=== PATIENT | male | born 1950 | race Caucasian/White ===

== ENCOUNTER 2024-01-12 05:05 | Observation (INO) ==
--- NOTE | 2023-12-31 09:12 | PAT Medication Instructions ---
Medication Instructions Date of Service December 31, 2023 Home Medications zolpidem 5 mg tablet 5 mg PO HS PRN turmeric 400 mg capsule 400 mg PO QAM STOP taking 2 weeks before surgery (or as soon as possible if surgery is within 2 weeks) turmeric 400 mg capsule 400 mg PO QAM Take evening before surgery zolpidem 5 mg tablet 5 mg PO HS PRN(if needed) Other Notes NOTHING TO EAT OR DRINK AFTER MIDNIGHT. If you have any questions please call us at [phone] or [phone] or [phone] or [phone]
--- NOTE | 2024-01-01 10:02 | Anesthesiology Consultation ---
Date of Service January 01, 2024 Assessment & Plan (1) Encounter for pre-operative examination: - Infectious disease screening: Per assessment on 01/01/24: No known recent infectious disease contacts or current infectious disease symptoms. - Outpatient joint assessment: Pt currently scheduled for inpatient pathway. If surgeon requests review for outpatient joint pathway, patient is an acceptable candidate for outpatient joint program from anesthesia standpoint pending surgeon's office assessment that patient is motivated, has good support and completes Same Day Joint Program preop requirements. Chart Review Chart Review: Acceptable Risk for Surgery and Patient seen in Pre Admission Testing Teaching & Discussion Pre-Anesthesia Teaching/Discussion Notes: Instructed NPO after midnight before surgery,except medications with 15 cc of water. Medication instructions provided according to the PAT guidelines. History Surgery Operation Date: 01/12/24 08:50 Proposed Procedures p Right Total Hip Arthroplasty - Jan Batista MD Height/Weight Height: 5 ft 9 in Weight: 85.2 kg Allergies Allergy/AdvReac Type Severity Reaction Status Date / Time NSAIDS (Non-Steroidal Allergy Mild Rash Verified 12/30/23 15:39 Anti-Inflamma Medications Home Medications Medication Instructions Recorded Confirmed Last Taken zolpidem 5 mg tablet 5 mg PO HS PRN Sleep 05/10/20 12/30/23 04/15/22 turmeric 400 mg capsule 400 mg PO QAM 05/01/23 12/30/23 05/10/23 Past Medical History Medical History History of DVT (deep vein thrombosis) 2016; RLE post op History of Lyme disease "Multiple episodes"- most recent 3+ years ago History of renal stone Insomnia Osteoarthritis Exercise / Class Metabolic Activity II 4-5 Yardwork/Stairs/Walk up hill (one FS: No CP, no SOB) Past Family History Family History Sister Family history of reaction to anesthesia Sister: Heart stopped during hysterectomy and was "revived" 60+ years ago Other Deep vein thrombosis Past Surgical History Surgical History H/O lymph node excision History of arthroscopy of right knee History of carpal tunnel surgery of right wrist History of colonoscopy History of decompression of ulnar nerve Left + left CTR History of right knee joint replacement History of tonsillectomy History of tooth extraction Hx of left cataract extraction Hx of removal of cyst 1970s (upper jaw region) Hx of right cataract extraction Past Anesthesia History No Hx of Anesthesia Complications * Sister: Heart stopped during hysterectomy and was "revived" 60+ years ago History of PONV No Hx of PONV and No Hx of Motion Sickness Social History Smoking Status: Former smoker tobacco type: smokeless tobacco Do You Dip or Chew Tobacco: No (Quit 1 year ago- advised none DOS) Smoking End Date: Quit years ago Hx Alcohol Use: Yes Alcohol type: beer alcohol intake frequency: holidays/special occasions only Hx Substance Use: No substance use type: does not use Review of Systems Patient denies chest pain, shortness of breath, dyspnea on exertion, fever, chills, cough, wheezing, palpitations. Physical Exam Vital Signs BP 129/75 P 58 TEMP 97.8 SP02 95%RA RESP 16 Physical Full cervical extension range of motion. Full TMJ range of motion. TMD > 3.5 finger breaths Mallampati Score II Dentition: upper full denture Lungs: clear throughout to auscultation Cardiac: regular rate and rhythm, no murmurs noted Spine: normal Carotid arteries: negative bruit Extremities: no LE edema Short neck Lab Results Anesthesia Preop Results Results Anesthesia Widget: WBC 6.04 K/ul (4.8-10.8) 01/01/24 Hgb 15.2 g/dl (14.0-18.0) 01/01/24 Hct 44.8 % (42.0-52.0) 01/01/24 Plt 214 K/uL (130-400) 01/01/24 Na 140 mmol/L (136-145) 01/01/24 K 3.9 mmol/L (3.5-5.1) 01/01/24 Cl 109 mmol/L (98-107) H 01/01/24 CO2 26 mmol/L (21-32) 01/01/24 BUN 16 mg/dl (6-23) 01/01/24 Creat 1.03 mg/dl (0.6-1.4) 01/01/24 Glucose Level 91 mg/dl (70-99(Fasting)) 01/01/24 PT 10.3 Seconds (9.0-12.0) 01/01/24 PTT 26 Seconds (21-31) 01/01/24 INR 0.9 (0.9-1.1) 01/01/24 Blood Type O Positive 01/01/24 Antibody Screen NEGATIVE 01/01/24 Testing Electrocardiogram Date: 01/01/24 SB at 57bpm. "Otherwise normal ECG"
[2024-01-12] MEDS: LR 500ML BOLUS, THEN 15ML/HR IV SCH (05:51)
[2024-01-12] MEDS: FAMOTIDINE 20 MG TAB PO SCH (05:52)
[2024-01-12] MEDS: ACETAMINOPHEN 500 MG TAB PO SCH ×2 (05:52→10:43)
[2024-01-12] MEDS: METOCLOPRAMIDE HCL 10 MG TABLET PO SCH (05:52)
[2024-01-12] MEDS: LR 60ML/HR IV SCH (05:52)
[2024-01-12] MEDS ORDERED: BUPIVACAINE 0.5 % 5 MG/1 ML PF 10ML VIAL ONE (06:12)
[2024-01-12] MEDS ORDERED: fentaNYL citrate PF 100 MCG/2 ML VIAL ONE (06:40)
[2024-01-12] MEDS ORDERED: LIDOCAINE 2% 2 ML VIAL/AMP(20MG/ML) INFIL ONE (06:40)
[2024-01-12] MEDS ORDERED: MIDAZOLAM HCL 1 MG/ML 2ML VIAL ONE ×2 (06:40→06:43)
[2024-01-12] MEDS ORDERED: PROPOFOL IV EMULSION 10 MG/ML 20 ML VIAL IV ONE (06:40)
--- NOTE | 2024-01-12 06:45 | History & Physical Bridge Note ---
Date of Service January 12, 2024 History & Physical Bridge Note I have examined the patient, reviewed the History & Physical and in the interval since the performance of the History & Physical I have noted the following changes of clinical significance: no changes noted
[2024-01-12] MEDS: TRANEXAMIC ACID 1,000 MG **IV Pre-op IV SCH (06:49)
[2024-01-12] MEDS: ceFAZolin 2000MG 2,000 MG/15 ML SYR IV SCH ×2 (06:59→14:45)
[2024-01-12] MEDS ORDERED: ePHEDrine sulfate 50 MG/5 ML SYR ONE (07:30)
[2024-01-12] MEDS: BUPIVACAINE/EPINEPHRINE 0.5% MPF 1:200,000 30 ML VIAL ONE (07:32)
[2024-01-12] MEDS ORDERED: ATROPINE SULFATE 0.1 MG/ML 10ML SYR IV PRN (08:03)
[2024-01-12] MEDS ORDERED: ePHEDrine sulfate 50 MG/ML AMP IV PRN (08:03)
[2024-01-12] MEDS ORDERED: fentaNYL citrate PF 100 MCG/2 ML VIAL IV PRN (08:03)
--- NOTE | 2024-01-12 08:27 | Operative Report ---
PG Post Operative Report Pre & Post Diagnosis Operation Date: 01/12/24 07:00 Pre-Op Diagnosis: Right Hip Advanced Degenerative Joint Disease Post-Op Diagnosis: Right Hip Advanced Degenerative Joint Disease I identified the patient and participated in the time-out.: Yes Procedure Operation Date: 01/12/24 07:00 Actual Procedures p Right Total Hip Arthroplasty, Uncemented(Right) - Jan Batista MD Surgeon Jan Batista MD Hand Tier Дмитрий Durand PA-C Estimated Blood Loss 200 Findings Consistent with Post-Op Diagnosis Specimens Right femoral head sent for pathology. Anesthesia Type Spinal MAC Complications none Disposition Accompanied Patient To Recovery: No Indications Patient is a 73-year-old gentleman whose had about a year history of increasing right hip pain discomfort is consequently worse over the past 6 months. He failed conservative measures. X-rays show advanced progressive hip arthritis. He elected proceed with total hip arthroplasty. Description of Procedure Operative implants consist of: 1 Biomet G7 size 56 mm acetabular shell. 2. [place] hole director of enterprise architecture. 3. 6.5 cancellous acetabular screws 1 of 35 mm in length and 1 of 30 mm length. 4. Highly cross-linked polyethylene liner with a 56 mm outer diameter and 36 mm inner diameter. 5. DePuy Karaya I size 12 KLA femoral stem. 6. +8.5/36 mm ceramic articular ball. The patient was taken the op room, identified, placed on the operating table in the supine position but all contractors were appropriate padded. IV antibiotics tried by anesthesia team. A spinal anesthetic been implemented holding area. The patient is then placed in the left lateral decubitus position. An axillary roll was placed for distal Birkett position was used for positioning. The right hip and leg were then prepped and draped in usual sterile fashion. A posterolateral approach to the right hip was then performed to a curvilinear incision centered over the greater trochanter. Sharp dissection was Through subcutaneous tissue down of the IT band gluteal fascia the IT band gluteal fascia were incised longitudinally in line with skin incision. The greater trochanteric bursa was excised. The piriformis and external rotators along with the posterior hip joint capsule were then released from the posterior aspect the hip as a single layer. The hip was internally rotated and dislocated. A femoral neck osteotomy cut was made with Final Cut about 10 mm above the lesser trochanter. Femoral head was removed and sent for pathology. The femur was retracted anteriorly. Attention drawn the acetabulum. The acetabular labrum was excised to the pulmonary fat was excised. Sequential reaming the acetabular was then performed again with a size 45 and progressing up to 55. I reamed a little bit with a 56 reamer and then placed a 56 mm Biomet G7 acetabular shell in about 40 degrees lateral opening and 20 degrees of anteversion. It was fixed with two 6.5 screws. A trial liner was placed. Attention drawn the femur. The proximal femur was entered with a Cook cutter followed by canal finder. I then broached beginning with a size 8 and progressing up to 12 we got excellent fitted to 12. We trialed the hip. The +5 articular ball was stable but the soft tissue tension seemed a little bit loose and and lax and therefore we elected to use a +8.5 articular ball. Leg lengths appeared equal. We elect to place these implants. All trial implants were removed. An apex hole director of enterprise architecture was placed. Highly cross-linked polyethylene liner was placed. A size 12 KLA femoral stem was impacted in position. A +8.5/36 mm ceramic articular ball was placed. Hip was located and once again found to be stable. Attention drawn toward closing. Wounds irrigated coconuts pulsatile lavage solution. I did inject locally with 60 cc of half percent Marcaine with epinephrine. The posterior capsule and external rotators were then repaired through drill holes in the posterior trochanter with #2 Tycron suture. The IT band gluteal fascia then closed in 1 PDS suture in running fashion through subcutaneous tissues then closed in 2 layers with a deep layer #1 Vicryl suture and subcutaneous tissues with 2 Dexon suture in a buried interrupted fashion. Skin was closed with skin ambika. Leg was then cleaned and dried a sterile dressing with Xeroform, 4 fours, sterile ABD pads and foam tape were applied. The patient then transferred to the recovery room in stable condition. The patient tolerated the procedure well and there were no complications. Дмитрий Durand, my physician travel assistant, was present for the entire procedure. His assistance was essential and required for appropriate patient positioning, prepping and draping, surgical exposure, performing the technical details of the operation, placement the implants, closure of the wound, and placement of the sterile bandage. I attest to the content of the Intraoperative Record and any orders documented therein. Any exceptions are noted below.
--- NOTE | 2024-01-12 08:59 | XRay Report ---
XR hip 1V RT w pelvis HISTORY: 73 years-old Male IN PACU - Post Surgical right hip arthroplasty COMPARISON: 12/21/2023 TECHNIQUE: AP view the pelvis with crosstable lateral view of the right hip FINDINGS: Moderate to severe left hip osteoarthritis redemonstrated. Satisfactory alignment of the right hip ar throplasty. Lateral skin ambika are noted along with expected postoperative soft tissue swelling wit h deep tissue air. IMPRESSION: Satisfactory alignment of the right hip arthroplasty. ACT 112: Negative or not required by law. The above report was generated using voice recognition software. It may contain grammatical, syntax o r spelling errors. Electronically signed by: Marcellus Palomo M.D. 01/12/2024 8:58 AM
--- NOTE | 2024-01-12 09:38 | Anesthesiology Progress Note ---
Date of Service January 12, 2024 Anesthesia Post Procedure Vital Signs Vital Signs: Temp Pulse Resp BP BP Pulse Ox O2 Del Method 01/12/24 09:35 72 16 126/64 94 Room Air 01/12/24 09:25 37.3 C 70 14 105/64 94 Room Air 01/12/24 09:15 68 20 122/65 98 Room Air 01/12/24 09:05 69 20 112/60 99 Room Air 01/12/24 08:55 72 14 131/67 99 Room Air 01/12/24 08:45 72 13 114/55 L 96 Room Air 01/12/24 08:35 72 15 121/57 L 99 Oxymask 01/12/24 08:25 79 15 137/58 L 99 Oxymask 01/12/24 08:17 36.1 C L 80 16 115/52 L 96 Oxymask 01/12/24 05:43 36.6 C 64 18 141/77 H 95 Room Air O2 Flow Rate 01/12/24 09:35 01/12/24 09:25 01/12/24 09:15 01/12/24 09:05 01/12/24 08:55 01/12/24 08:45 01/12/24 08:35 5 01/12/24 08:25 5 01/12/24 08:17 5 01/12/24 05:43 Transfer of Care Handoff Completed per policy Notes Mental Status: alert / awake / arousable and participated in evaluation Nausea / Vomiting: adequately controlled Pain: adequately controlled Airway Patency, RR, SpO2: stable & adequate BP & HR: stable & adequate Hydration State: stable & adequate Neuraxial Anesthesia: was administered and sensory block is resolving Anesthetic Complications: no major complications apparent and Pt Satisfied with anesthetic care
[2024-01-12] MEDS: SODIUM CHLORIDE 0.9% 1,000 ML IV SCH (09:45)
[2024-01-12] MEDS ORDERED: ALUMINUM/MAGNESIUM SUSP 30 ML UDC PO PRN (09:51)
[2024-01-12] MEDS ORDERED: MAGNESIUM HYDROXIDE SUSP 30 ML UDC PO PRN (09:51)
[2024-01-12] MEDS ORDERED: ONDANSETRON INJ 2 MG/ML 2 ML VIAL IV PRN (09:51)
[2024-01-12] MEDS ORDERED: bisacodyL 10 MG SUPP PR PRN (09:51)
[2024-01-12] MEDS ORDERED: METOCLOPRAMIDE HCL INJ 5 MG/ML 2 ML VIAL IV PRN (09:51)
[2024-01-12] MEDS ORDERED: NO NSAIDS SCH (09:51)
[2024-01-12] MEDS ORDERED: NALOXONE HCL 0.4 MG/1 ML VIAL/CARP IV PRN (09:51)
[2024-01-12] MEDS ORDERED: NON-FORMULARY MEDICATION (Turmeric 400 mg Capsule) PO SCH (09:51)
[2024-01-12] MEDS: ALLERGY Noted to ORDERED Medication SCH (10:40)
[2024-01-12] MEDS: TAMSULOSIN HCL 0.4 MG CAP PO SCH (10:43)
[2024-01-12] MEDS: SENNA 8.6 MG TAB PO SCH ×2 (10:43→20:40)
[2024-01-12] MEDS: DOCUSATE SODIUM 100 MG CAP PO SCH (10:43)
[2024-01-12] MEDS: MULTIVITAMIN TAB PO SCH (11:41)
[2024-01-12] MEDS: traMADol HCL 50 MG TABLET PO PRN (12:44)
[2024-01-12] MEDS: HYDROmorphone INJ 0.5 MG/0.5 ML SYR IV PRN (13:57)
[2024-01-12] MEDS: TRANEXAMIC ACID / 0.7% NACL 1,000 MG/100 ML BAG IV SCH (14:45)
[2024-01-13 07:34] LABS: Basophils # (auto) 0.03 K/uL (0.00-0.20); Basophils % (auto) 0.4 %; Eosinophils # (auto) 0.05 K/uL (0.00-0.50); Eosinophils % (auto) 0.7 %; Hematocrit (blood only) 38.9 % (42.0-52.0); Hemoglobin 13.3 g/dl (14.0-18.0); Immature Granulocytes # (auto) 0.01 K/uL (0.01-0.20); Immature Granulocytes % (auto) 0.1 %; Lymphocytes # (auto) 0.85 K/uL (1.20-3.40); Lymphocytes % (auto) 12.2 %; Mean Corpuscular Hemoglobin 32.8 pg (25.0-34.0); Mean Corpuscular Hgb Conc 34.2 g/dL (32.0-36.0); Mean Platelet Volume 9.6 fL (9.4-12.4); Monocytes # (auto) 0.56 K/uL (0.11-0.59); Monocytes % (auto) 8.1 %; Neutrophils # (auto) 5.44 K/uL (1.40-6.50); Neutrophils % (auto) 78.5 %; Platelet Count 180 K/uL (130-400); RDW Standard Deviation 42.5 fL (36.4-46.3); Red Blood Count 4.05 M/uL (4.70-6.10); White Blood Count 6.94 K/ul (4.8-10.8)
[2024-01-13 08:00] LABS: BUN Creatinine Ratio 15.7 (10-20); Calcium 8.6 mg/dl (8.6-10.3); Creatinine Clr Calc Pharmacy 87.3 ml/min; Est GFR (African American) 101.9 ml/min; Est GFR (Non-African American) 87.9 ml/min
[2024-01-13] MEDS: RIVAROXABAN 10 MG TABLET PO SCH (08:12)
--- NOTE | 2024-01-13 10:59 | Orthopedic Progress Note ---
Date of Service January 13, 2024 Assessment & Plan (1) Status post right hip replacement: Plan: 73-year-old male postop day 1 from right total hip placement he is doing pretty well. He seems to be at least reporting quite a bit of pain but looks pretty comfortable to my exam and assessment. His hips located. He is neurologically intact. Plan: 1. DVT prophylaxis including thigh-high teds, SCDs, Xarelto for 30 days as he does not tolerate aspirin. 2. PT/OT. Weight-bear as tolerated right total hip protocol. 3. Pain control doing okay with current pain regimen. He is reporting a decent mount of pain but looks pretty comfortable. 4. Disposition plan is to discharge to home with some home health if he does okay in therapy today. Admission and Anticipated Discharge Date Admission Date: January 12, 2024 Subjective 73-year-old gentleman postop day 1 from a right total hip replacement. He is doing okay. This pain has been a bit excessive on an intermittent basis. Describes mostly just buttock and lateral hip pain. No chest pain or shortness of breath. Not feeling dizzy or lightheaded. Physical Exam Physical Exam: Physical exam shows a pleasant middle-age male. He was sitting in his upright chair with talking to the therapist. Examination of the right hip reveals dressing be clean dry and intact. Leg lengths are equal. Can dorsiflex and plantarflex his foot appropriately. He is neurologically intact. Respiratory: normal respiratory effort, lungs clear to auscultation Cardiovascular: RRR, no murmur, no edema Gastrointestinal (Abdomen): normal bowel sounds, soft, nontender, no hepatosplenomegaly Results & Data Vital Signs (Past 12 Hours) Vital Signs Temp Pulse Resp BP BP Pulse Ox O2 Del Method 01/13/24 08:11 36.5 C 71 22 132/69 98 Room Air 01/13/24 07:13 36.5 C 77 18 122/66 95 Room Air 01/13/24 03:00 36.4 C L 63 18 126/60 97 Room Air 01/12/24 23:00 36.7 C 62 18 117/62 95 Room Air Laboratory Results Hemoglobin is 13.3. Hematocrit is 38.9. Electrolytes are stable.
[2024-01-13 20:34] VITALS: TEMP 98.1; O2SAT 95
[2024-01-13] MEDS: ZOLPIDEM TARTRATE 5 MG TAB PO PRN (22:36)
[2024-01-14 07:15] VITALS: BP 131/65; PULSE 74; RESP 18
--- NOTE | 2024-01-14 07:29 | Orthopedic Progress Note ---
Date of Service January 14, 2024 Assessment & Plan (1) Status post right hip replacement: Plan: 73-year-old gentleman postop day 2 from a right total hip replacement. He is doing quite bit better this morning. Pains controlled. Hips located. He is neurologically intact. Plan: 1. DVT prophylaxis including [place]e teds, SCDs, Xarelto for 1 month. 2. PT/OT. Weight-bear as tolerated. Right total hip protocol. 3. Pain control doing okay with current pain regimen. 4. Disposition plan is to do a discharge to home with some home health if he does okay in therapy today. Admission and Anticipated Discharge Date Admission Date: January 12, 2024 Subjective 73-year-old gentleman now well postop day 2 from a right total hip replacement. Appears to be doing much better this morning. He says last night thinks he got quite a bit better and has been able to get up and out of bed by himself. Pains controlled. No chest pain or shortness of breath. Not feeling dizzy or lightheaded. Physical Exam Physical Exam: Physical examination was a pleasant middle-age male. I did wake him this morning. Examination of the right hip reveals dressing be clean dry and intact. Leg lengths are equal. Thigh is soft and supple. He is neurologically intact. Results & Data Vital Signs (Past 12 Hours) Vital Signs Temp Pulse Resp BP BP Pulse Ox O2 Del Method 01/14/24 07:13 36.7 C 74 18 131/65 95 Room Air 01/13/24 20:32 36.7 C 70 15 152/79 H 95 Room Air
== END 2024-01-14 11:20 | disposition home health service (06) ==
LOC: ASU 05:05 → 3E 05:05

== ENCOUNTER 2024-04-12 05:05 | Observation (INO) ==
--- NOTE | 2024-04-04 18:23 | History & Physical Report ---
Date of Service April 04, 2024 Assessment & Plan (1) Arthritis of left hip: 73-year-old gentleman 2 and half months out from a right hip replacement doing well with advanced left hip arthritis. He is very happy with the right hip and would like to have his left hip replaced. His knee replacement is doing well also. Plan: Orgran taken to the operating room and do a left total hip replacement. The risks and benefits of this procedure once again explained. The patient understands and desires to proceed. Informed consent was obtained. Will plan on using Xarelto for DVT prophylaxis. He apparently had a reaction to NSAIDs. He is planning on being discharged to home with home health. Plan will be to stay overnight and hopeful discharge postoperative day 1. (2) Status post right hip replacement: (3) History of right knee joint replacement: History of Present Illness Chief Complaint: . Persistent progressive left hip pain. Primary Care Provider: Corina Abernathy . The patient is a 73-year-old gentleman now about 2 and half months out from a right hip replacement. His right hip is doing well. He continues to be limited by left hip pain discomfort. He describes groin pain thigh pain. He has not been treated with the medicines in the past which have not helped much. Very happy with the right hip and would like to have his left hip replaced. There is been no change in his medical situation. Allergies Allergy/AdvReac Type Severity Reaction Status Date / Time NSAIDS (Non-Steroidal Allergy Severe Rash Verified 04/04/24 08:29 Anti-Inflamma Home Medications Medication Instructions Recorded Confirmed Type zolpidem 5 mg tablet 5 mg PO HS PRN Sleep 05/10/20 04/04/24 History turmeric 400 mg capsule 400 mg PO QAM 05/01/23 04/04/24 History ondansetron 4 mg disintegrating 4 mg PO Q8 PRN nausea #20 tabs 01/08/24 04/04/24 Rx tablet acetaminophen 500 mg tablet 1,000 mg PO TID PRN pain 04/04/24 04/04/24 History (Tylenol Extra Strength) vitamin B12 1,000 mcg-folic acid 1 tab sublingual DAILY 04/04/24 04/04/24 History 400 mcg sublingual tablet Past Med/Surg History Problem List Arthritis of left hip Status post right hip replacement Trigger thumb, left thumb Cubital tunnel syndrome, bilateral Bilateral carpal tunnel syndrome CMC arthritis, thumb, degenerative Medical History History of pneumonia x 2- 35-40 years ago Hx of lung disease had been admitted to hospital in 1969's due to inhaling welding smoke - has not had any problems "in many years" Arthritis of left hip History of renal stone passed on own History of Lyme disease "Multiple episodes"- most recent 3+ years ago Osteoarthritis Insomnia History of DVT (deep vein thrombosis) (2016) 2016; RLE post op- no clots since (was placed on prophylactic xarelto for 30 days post right total hip 01/12/24) Surgical History History of bilateral carpal tunnel release Hx of bilateral cataract extraction Status post right hip replacement (01/12/24) Hx of removal of cyst (1969) (upper jaw region) History of decompression of ulnar nerve Left + left CTR History of tooth extraction H/O lymph node excision History of tonsillectomy History of colonoscopy History of arthroscopy of right knee History of right knee joint replacement Family History Sister Family history of reaction to anesthesia Sister: Heart stopped during hysterectomy and was "revived" 60+ years ago Other Deep vein thrombosis Social History Smoking Status: Former smoker Tobacco Type: Cigarettes and Smokeless Tobacco (Dip or Chew) Second Hand Exposure: No; Do You Dip or Chew Tobacco: No (quit chewing 1 year ago); Hx Alcohol Use: Yes Alcohol type: beer Hx Substance Use: No Preferred Language: Lao Communication Ability: Effective Inside Sales Executive Required: No Beliefs That Will Affect Care: None marital status: Current Living Situation: Spouse Feels Safe at Home: Yes Assistive Devices: Denture - Upper and Glasses Review of Systems All systems reviewed & are unremarkable except as noted in HPI & below. Physical Exam . Physical examination reveals a pleasant middle-age male. Looks to be in good health. Examination of the hips reveal patient walks independently. Examination of the left hip reveals this leg to be just slightly shorter than the right. He is got the stiffness with and pain with any type of hip motion. Internal rotation to neutral at best. No knee effusion. He is neurologically intact. Examination of the right hip reveals well-healed incision. No real less significant swelling. He is got no pain with hip motion. Once again his right hip may be just slightly a little bit longer than the left maybe half a centimeter. Constitutional WD/WN, vitals as above Respiratory normal respiratory effort, lungs clear to auscultation Cardiovascular RRR, no murmur, no edema Gastrointestinal (Abdomen) normal bowel sounds, soft, nontender, no hepatosplenomegaly Results & Data Results & Data Laboratory Results . Diagnostic Findings . X-rays of both hips were reviewed. Shows a right uncemented hip replacement. Components look to be in good position without signs of problems. He has a pretty significant advanced left hip arthritis which has progressed even over the past several months. Is got near complete loss of superior joint space to get a little bit of cystic changes of the acetabulum and superior femoral head. PG Care Time/CCT Total # of Minutes Spent Total Time Spent with Patient: Total time spent is greater than 50% in coordination of care (as documented) at patient's floor/unit and/or counseling patient: Coding Level of Care Code None Diagnoses Arthritis of left hip M16.12 Status post right hip replacement Z96.641 History of right knee joint replacement Z96.651
--- NOTE | 2024-04-05 16:17 | Anesthesiology Consultation ---
Date of Service April 05, 2024 Assessment & Plan (1) Encounter for pre-operative examination: Chart Review Chart Review: Acceptable Risk for Surgery and Patient NOT seen in Pre Admission Testing Pt currently scheduled as 23 hours observation. If surgeon decides to change patient to [facility] Day [facility], patient would be acceptable risk for SB, pending patient is motivated, has good support and surgeon's office completes [facility] Program preop requirements. -Infectious Disease screening: Per PAT nursing assessment on 04/04/24. No known infectious disease contacts in past 10 days or current infectious disease sy mptoms. No recent travel outside the country. Right SB 01/12/24= Done under SAB at L3-4 with 1 attempt History Surgery Operation Date: 04/12/24 12:30 Proposed Procedures p Left Total Hip Arthroplasty - Jan Batista MD Height/Weight Height: 5 ft 8.5 in Weight: 83.915 kg Allergies Allergy/AdvReac Type Severity Reaction Status Date / Time NSAIDS (Non-Steroidal Allergy Severe Rash Verified 04/04/24 08:29 Anti-Inflamma Medications Home Medications Medication Instructions Recorded Confirmed Last Taken zolpidem 5 mg tablet 5 mg PO HS PRN Sleep 05/10/20 04/04/24 01/11/24 21:00 turmeric 400 mg capsule 400 mg PO QAM 05/01/23 04/04/24 12/29/23 ondansetron 4 mg disintegrating 4 mg PO Q8 PRN nausea #20 tabs 01/08/24 04/04/24 Unknown tablet acetaminophen 500 mg tablet 1,000 mg PO TID PRN pain 04/04/24 04/04/24 Unknown (Tylenol Extra Strength) vitamin B12 1,000 mcg-folic acid 1 tab sublingual DAILY 04/04/24 04/04/24 Unknown 400 mcg sublingual tablet Past Medical History Medical History History of DVT (deep vein thrombosis) (2016) 2016; RLE post op- no clots since (was placed on prophylactic xarelto for 30 days post right total hip 01/12/24) History of Lyme disease "Multiple episodes"- most recent 3+ years ago History of renal stone passed on own Hx of lung disease had been admitted to hospital in 1970's due to inhaling welding smoke - has not had any problems "in many years" Insomnia Osteoarthritis Past Family History Family History Sister Family history of reaction to anesthesia Sister: Heart stopped during hysterectomy and was "revived" 60+ years ago Other Deep vein thrombosis Past Surgical History Surgical History H/O lymph node excision History of arthroscopy of right knee History of bilateral carpal tunnel release History of colonoscopy History of decompression of ulnar nerve Left + left CTR History of right knee joint replacement History of tonsillectomy History of tooth extraction Hx of bilateral cataract extraction Hx of removal of cyst (1969) 1970s (upper jaw region) Status post right hip replacement (01/12/24) Right SB 01/12/24= Done under SAB at L3-4 with 1 attempt Social History Smoking Status: Former smoker tobacco type: smokeless tobacco Do You Dip or Chew Tobacco: No (quit chewing 1 year ago) Smoking End Date: quit 40 years ago Hx Alcohol Use: Yes Alcohol type: beer alcohol intake frequency: a few times a week Hx Substance Use: No substance use type: does not use Lab Results Anesthesia Preop Results Results Anesthesia Widget: WBC 4.92 K/ul (4.8-10.8) 04/05/24 Hgb 14.7 g/dl (14.0-18.0) 04/05/24 Hct 44.3 % (42.0-52.0) 04/05/24 Plt 251 K/uL (130-400) 04/05/24 Na 142 mmol/L (136-145) 04/05/24 K 4.0 mmol/L (3.5-5.1) 04/05/24 Cl 107 mmol/L (98-107) 04/05/24 CO2 27 mmol/L (21-32) 04/05/24 BUN 14 mg/dl (6-23) 04/05/24 Creat 0.95 mg/dl (0.6-1.4) 04/05/24 Glucose Level 73 mg/dl (70-99(Fasting)) 04/05/24 PT 10.3 Seconds (9.0-12.0) 04/05/24 PTT 26 Seconds (21-31) 04/05/24 INR 0.9 (0.9-1.1) 04/05/24 Blood Type O Positive 04/05/24 Antibody Screen NEGATIVE 04/05/24 Testing Electrocardiogram Date: 01/01/24 SB at 57bpm. "Otherwise normal ECG"
[2024-04-12] MEDS: METOCLOPRAMIDE HCL 10 MG TABLET PO SCH (05:53)
[2024-04-12] MEDS: ACETAMINOPHEN 500 MG TAB PO SCH ×2 (05:53→13:30)
[2024-04-12] MEDS: FAMOTIDINE 20 MG TAB PO SCH (05:53)
[2024-04-12] MEDS: CeleBREX 200 MG CAP PO SCH (05:53)
[2024-04-12] MEDS: LR 500ML BOLUS, THEN 15ML/HR IV SCH (05:54)
[2024-04-12] MEDS: LR 60ML/HR IV SCH (05:54)
[2024-04-12] MEDS ORDERED: BUPIVACAINE 0.5 % 5 MG/1 ML PF 10ML VIAL ONE (06:20)
[2024-04-12] MEDS ORDERED: PROPOFOL IV EMULSION 10 MG/ML 20 ML VIAL IV ONE ×2 (06:36→07:23)
[2024-04-12] MEDS ORDERED: fentaNYL citrate PF 100 MCG/2 ML VIAL ONE (06:37)
[2024-04-12] MEDS ORDERED: MIDAZOLAM HCL 1 MG/ML 2ML VIAL ONE (06:37)
--- NOTE | 2024-04-12 06:38 | History & Physical Bridge Note ---
Date of Service April 12, 2024 History & Physical Bridge Note I have examined the patient, reviewed the History & Physical and in the interval since the performance of the History & Physical I have noted the following changes of clinical significance: no changes noted
[2024-04-12] MEDS ORDERED: ePHEDrine sulfate 50 MG/ML AMP IV PRN (06:40)
[2024-04-12] MEDS ORDERED: ATROPINE SULFATE 0.1 MG/ML 10ML SYR IV PRN (06:40)
[2024-04-12] MEDS ORDERED: ONDANSETRON INJ 2 MG/ML 2 ML VIAL IV PRN (06:40)
[2024-04-12] MEDS ORDERED: fentaNYL citrate PF 100 MCG/2 ML VIAL IV PRN (06:40)
[2024-04-12] MEDS: TRANEXAMIC ACID 1,000 MG **IV Pre-op IV SCH (06:42)
[2024-04-12] MEDS: ceFAZolin 2000MG 2,000 MG/15 ML SYR IV SCH ×2 (06:57→15:11)
--- NOTE | 2024-04-12 07:15 | XRay Report ---
EXAM: XR chest 2V PA/lateral CLINICAL HISTORY: PRE OP DENIES CHEST COMPLAINTS JMHarshal TECHNIQUE: Radiograph of chest was acquired. COMPARISON: June, FINDINGS: The lungs are clear and well-expanded with no pulmonary infiltrate or pleural effusion. The cardiomediastinal silhouette is within normal limits. No acute osseous abnormality. IMPRESSION: 1. No acute cardiopulmonary disease. No interval changes. Electronically signed by Elia Ellis 04-12-2024 07:14 AM
[2024-04-12] MEDS ORDERED: ePHEDrine sulfate 50 MG/5 ML SYR ONE (07:23)
[2024-04-12] MEDS: BUPIVACAINE/EPINEPHRINE 0.5% MPF 1:200,000 30 ML VIAL ONE (07:38)
[2024-04-12] MEDS ORDERED: PHENYLEPHRINE HCL 10 MG/ML VIAL ONE (07:43)
--- NOTE | 2024-04-12 08:25 | Operative Report ---
PG Post Operative Report Pre & Post Diagnosis Operation Date: 04/12/24 07:00 Pre-Op Diagnosis: Left Hip Degenerative Joint Disease Post-Op Diagnosis: Left Hip Degenerative Joint Disease I identified the patient and participated in the time-out.: Yes Procedure Operation Date: 04/12/24 07:00 Actual Procedures p Left Total Hip Arthroplasty, Uncemented(Left) - Jan Batista MD Surgeon Jan Batista MD Installation Superintendent Дмитрий Durand PA-C Estimated Blood Loss 150 Findings Consistent with Post-Op Diagnosis Operative findings revealed significant joint effusion. He had significant cartilage loss of the femoral head and acetabulum. Not really any eburnation per se. Minimal osteophyte formation. Specimens Left femoral head sent for pathology. Anesthesia Type Spinal MAC Complications none Disposition Accompanied Patient To Recovery: No Indications The patient is a 73-year-old gentleman whose had a several year history of increasing hip pain and discomfort. He had his right hip replaced just 3 months ago and is done well from this. He continued be limited by left hip pain discomfort. X-rays showed advanced left hip arthritis. He elected proceed with surgical treatment. Description of Procedure Operative implants consist of: 1 Biomet G7 size 56 mm acetabular shell 2. 6.5 cancellous acetabular screws 1 at 35 mm in length and 125 mm length. 3. Gilson hole stage electrician helper. 4. Highly cross-linked polyethylene liner with a 56 mm outer diameter and 36 mm inner diameter. 5. DePuy Corail size 12 KLA femoral stem. 6. +5/36 mm ceramic articular ball. The patient was taken the operating, identified, placed on the operating table in the supine position. All conductors were appropriately padded. IV antibiotics fibra anesthesia team. Spinal anesthetic been implemented holding area. The patient was then placed in the right lateral decubitus position. An axillary roll was placed. A stool Birkett position was used for positioning. Left hip and leg were then prepped and draped in usual sterile fashion. A posterolateral approach to the left hip was then performed to a curvilinear incision centered over the greater trochanter. Sharp dissection was got through subcutaneous tissue down to the IT band gluteal fascia. The IT band gluteal fascia incised longitudinally in line with skin incision. The underlying greater bursa was excised. The piriformis and external rotators along with the posterior hip joint capsule were then released from the posterior aspect of the hip as a single layer. Great care was taken throughout the procedure protect the sciatic nerve at all times. The hip was internally rotated and dislocated. A femoral neck osteotomy cut was made with Final Cut about 12 mm above the lesser trochanter. Femoral head was removed and sent for pathology. The femur was retracted anteriorly. Attention drawn the acetabulum. The acetabulum labrum was excised. The pulmonary fat was excised. Sequential reaming the acetabular was then performed beginning with a size 45 and progressing up to 55. I reamed a little bit with a 56 reamer and then placed a 56 mm Biomet cup in about 40 degrees lateral opening and 20 degrees of anteversion. It was fixed with two 6.5 cancellous screws. A trial liner was placed. Attention drawn the femur. The proximal femur was entered with cookie-cutter followed by canal finder. I then broached beginning with a size 8 and progressed up to a 12. Got excellent fit the 12. Calcar reamer was used smoothing off the calcar. We then trialed the hip and the +5 articular ball provided appropriate soft tissue tensioning, equal leg lengths, and was stable in full extension and external rotation and flexion to 90 degrees internal rotation over [address] We elect to place these implants. All trial implants were removed. An apex hole stage electrician helper was placed. Highly cross-linked polyethylene liner was placed. I-S size 12 KLA femoral stem was impacted in position. A +5/36 mm ceramic articular ball was placed. Hip was located and once again found to be stable. Attention drawn toward closing. The wound was irrigated coconuts of pulsatile lavage solution. We did inject locally with 60 cc of half percent Marcaine with epinephrine. The posterior capsule and external rotators of the arm repaired through drill holes in the posterior trochanter with #2 Tycron suture. The IT band gluteal fascia then closed #1 PDS suture in running fashion to subcutaneous tissues then closed with 2 layers the deep layer #1 Vicryl suture and subcutaneous tissues with 2-0 Dexon suture in a buried interrupted fashion. The skin was then closed with skin ambika. Leg was then cleaned and dried a sterile dressing was Xeroform, 4 fours, ABD pad and foam tape was applied. The patient then transferred to the recovery room in stable condition. Patient tolerated the procedure well. There were no complications. Дмитрий Durand, my physician client account assistant, was present for the entire procedure. His assistance was essential and required for appropriate patient positioning, prepping and draping, surgical exposure, performing the technical details of the operation, placement the implants, closure of the wound, and placement of the sterile bandage. I attest to the content of the Intraoperative Record and any orders documented therein. Any exceptions are noted below.
--- NOTE | 2024-04-12 08:56 | XRay Report ---
XR hip 1V LT w pelvis CLINICAL HISTORY: IN PACU - Post Surgical COMPARISON: Left hip radiograph March 03, 2024. FINDINGS: Alignment of the total left hip arthroplasty is anatomic. There is no periprosthetic fract ure or unexpected radiopaque foreign body. There are acetabular screws. Right hip arthroplasty is int act. IMPRESSION: Expected findings following total left hip arthroplasty. ACT 112: Negative or not required by law. Electronically signed by: Wilmer Hinds M.D. 04/12/2024 8:55 AM
--- OUTSIDE RECORDS SUMMARY | 2024-04-12 09:22 | External Medical Summary | Continuity of Care Document ---
Author Name Unknown Organization [facility] Address [address], [place] [address] Phone [phone] Problems Active Problems Provider Date Insomnia Corina Abernathy MD, PhD Onset: 08/30/2010 Depressive disorder Fadi Braga MD Onset: 08/30/2010 Replacement of total knee joint Corina Abernathy MD, PhD Onset: 05/08/2014 Gilbert's syndrome Ousmane Del Rosario DO Onset: 06/2022 Social History Type Date Description Comments Sex Unknown Tobacco Use Reviewed: 09/22/23 Never Smoked Cigarette s Tobacco Use Reviewed: 09/22/23 Never Smoked Cigars Tobacco Use Reviewed: 09/22/23 Never Smoked A Pipe Smoking Status Reviewed: 09/22/23 Never Smoked A Pipe Smokeless Tobacco 09/22/2023 Former Smokele ss Tobacco User, Used 5 Times Daily ETOH Use Occasionally consumes alcoho l Recreational Drug Use Denies Drug Use Allergies and adverse reactions Active Allergies Criticality Reaction | Severity Comments Date Naproxen Unable to assess criticality hives 01/20/2008 Medications Active Medications SIG Qnty Indications Order ing Provider Date 3ML Luer Lock Safety Syringes/3ML/25G X 1"25G X 1" 3 ML Misc use to administer b12 12units Corina Abernathy MD, PhD 08/20/2021 Zolpidem Xahikbbi5qy Tablets 1 tab every night at bedtime as needed insomnia 90tabs Corina Abernathy MD, PhD 05/18/2017 Medications Administered in Office Medication SIG Qnty Indications Ordering Provider Date Injection Methylprednisolone Acetate 20 MGInjection Corina cooper MD, PhD 03/17/2012 Immunizations CPT Code Status Date Vaccine Lot # [id number] Given 08/30/2010 Tdap (Tetanus, diphtheria & acel. pertussis) Adacel or Boostrix [id number] Refused 05/19/2023 Influenza Virus Vaccine, Quadrivalent (Cciiv4), Derived From Cell [id number] Refused 10/29/2022 Pfizer Sars-Cov -2 (Cov-19) vacc 30mcg/0.3ML 12Y+ EMR Doc Only 08352 Refused 10/29/2022 Shingrix 60416 Refused 10/29/2022 Pneumococcal Conjugate-Pr evnar 20 60078 Refused 09/11/2020 Moderna Sars-Co v-2 (Cov-19) vacc,100 mcg/ 0.5 mL 12Y+EMR Doc Only 49812 Refused 09/11/2020 Shingrix 33264 Refused 09/11/2020 Pneumococcal Conjugate-Pr evnar 13 77500 Refused 09/11/2020 Tdap (Tetanus, diphtheria & acel. pertussis) Adacel or Boostrix [id number] Refused 04/21/2018 Pneumococcal Vaccine/Pneu movax 23 96592 Refused 04/02/2018 Shingrix Pt. Supplied 47080 Refused 04/02/2018 Influenza Virus Vaccine, Quadrivalent, Im Use 40157 Refused 09/15/2017 Pneumococcal Vaccine/Pneu movax 23 31304 Refused 09/15/2017 Pneumococcal Conjugate-Pr evnar 13 29835 Refused 03/14/2017 Pneumococcal Conjugate-Pr evnar 13 50146 Refused 02/12/2017 Influenza Virus Vaccine, Quadrivalent, Im Use 29375 Refused 10/17/2016 Zostavax-PT Supplied 64613 Refused 02/13/2016 Influenza Virus Vaccine, Quadrivalent, Im Use 73441 Refused 10/22/2013 Zostavax-PT Supplied 50741 Refused 10/06/2013 Influenza Vac, Split 6 Mo nths And Older Vital Signs Date Vital Result Comment 03/29/2024 10:52am BP Systolic 132 mmHg BP Diastolic 84 mmHg Body Temperature 97.8 F Heart Rate 80 /min Respiratory Rate 20 /min Weight 192.00 lb Weight 87.091 kg Height 66 inches 5'6" BMI (Body Mass Index) 31.0 kg/m2 [place] Body Weight 142 lb 09/22/2023 7:57am BP Systolic 130 mmHg BP Diastolic 76 mmHg Body Temperature 97.9 F Heart Rate 68 /min Respiratory Rate 16 /min Weight 186.25 lb Weight 84.483 kg Height 66 inches 5'6" BMI (Body Mass Index) 30.1 kg/m2 [place] Body Weight 142 lb Results Test Acquired Date Facility Test Result H/L Range Note Laboratory test finding 03/29/2024 [facility] [address] [place], [place] [id number] TSH 2.55 uIU/mL 0.50-6.00 Uric Acid 6.6 mg/dL 2.5-7.5 R.A. Factor <10.0 IU/mL 0.0-20.0 Caty NEGATIVE 1 Sed Rate 5 0-15 Comp. Met 03/22/2024 [facility] [address] [place] [address] [phone] Glucose 96 mg/dL 70-110 2 BUN 16 mg/dL 6-25 Creatinine 0.9 mg/dL 0.7-1.3 Sodium 141 mEq/L 135-145 Potassium 4.2 mEq/L 3.5-5.0 Chloride 109 mEq/L High 95-107 Co-2 21 mEq/L Low 24-31 Alk Phos 76 IU/L 43-122 Alt(SGPT) 12 IU/L 10-40 Ast(Sgot) 17 IU/L 3-42 T.Bilirubin 1.7 mg/dL High 0.1-1.3 Calcium 9.4 mg/dL 8.5-10.6 Tot.Protein 6.4 g/dL 5.8-8.0 Albumin 4.1 g/dL 3.0-5.2 Globulin 2.3 g/dL 2.0-3.4 GFR 88 ML/MIN/1.73S QM >60 Lipid 03/22/2024 [facility] [address] [place] [address] Cholesterol 217 mg/dL High 0-200 3 Triglyceride 103 mg/dL 0-150 4 HDLD 54 mg/dL See Comment 5 Measured LDL 162 mg/dL High 0-130 6 Calc VLDL 20.6 mg/dL See Comment 7 Chol/HDL 4.0 RATIO See Comment 8 Non-HDL 163 mg/dL See Comment 9 CBC W/Diff 03/22/2024 [facility] [address] [place], [place] [id number] WBC 4.9 10^3/M3 3.1-9.2 RBC 4.27 10^6/M3 4.00-5.80 HGB 14.5 GR/DL 12.5-17.5 HCT 42.7 % 37.5-52.5 MCV 100.1 CUMICR High 82.6-95.8 MCH 34.1 PICOGR High 27.9-32.9 MCHC 34.0 % 32.6-35.4 RDW 13.1 % 11.4-14.6 PLT 241 10^3/M3 140-350 MPV 7.9 CUMICR 7.0-10.6 %Neut 56.4 % 40.0-75.0 %Lymph 29.5 % 17.0-45.0 %[place] 9.7 % 1.0-11.0 %Eos 3.2 % 0.0-6.0 %Baso 1.2 % 0.0-2.0 #Neut 2.8 10^3/M3 1.5-8.0 #Lymph 1.5 10^3/M3 0.8-3.2 #[place] 0.5 10^3/M3 0.0-0.8 #Eos 0.2 10^3/m3 0.0-0.4 #Baso 0.1 10^3/m3 0.0-0.2 Laboratory test finding 03/22/2024 [facility] [address] [place] [address] VB12 405 pg/mL 230-1050 Vitd-25Oh 66 ng/mL 30-100 1 CATY Methodology is a n indirect enzyme antibody test for the semi-quantitative detection of antinuclear antibody. 2 FASTING 3 CHOLESTEROL Less than 200mg/dl Low risk 201-239 mg/dl Borderline risk Equal to or greater 240mg/dl High risk 4 TRIGLYCERIDES Less than 150mg/dl Normal 150-199mg/dl Borderline 200-499mg/dl High Greater than 500mg/dl Very High 5 HDL <40mg/dl Elevated Risk 41-59mg/dl Risk >=60mg/dl Least Risk 6 LDL <100mg/dl Optimal 100-129mg/dl Near Optimal 130-159mg/dl Borderline High 160-189mg/dl High >=190 Very High 7 VLDL Less than 30mg/dl Normal 8 CHOL/HDL <4.0 Optimal 4.0-5.0 Borderline >6.0 High Risk 9 NON-HDL 30mg/dl higher than LDL Target Procedures Date Code Description Status 03/29/2024 G9920 Scrning Perf And Negative Co mpleted 03/29/2024 G2211 Continuation of care e/m vis it add on Completed 03/29/2024 31808 Venipuncture Routine Complet ed 03/22/2024 65886 Venipuncture Routine Complet ed 03/16/2014 39940073 Colonoscopy Completed Medical Devices Description No Information Available Encounters Type Date Location Provider Dx Diagnosis Office Visit 03/29/2024 11:00a [facility] Corina Abernathy MD, PhD G47.00 Insomnia, unspecified E78.2 Mixed hyperlipidemia E55.9 Vitamin D deficiency , unspecified E80.4 Gilbert syndrome M25.549 Pain in joints of un specified hand Assessments Date Code Description Provider 03/29/2024 G47.00 Insomnia, unspecified Corina Abernathy MD, PhD 03/29/2024 E78.2 Mixed hyperlipidemia Corina Abernathy MD, PhD 03/29/2024 E55.9 Vitamin D deficiency, unspec ified Corina Abernathy MD, PhD 03/29/2024 E80.4 Gilbert's syndrome Corina cooper MD, PhD 03/29/2024 M25.549 Pain in joints of unspecifie d hand Corina Abernathy MD, PhD 03/22/2024 Z13.1 Encounter for sc reening for diabetes mellitus Corina Abernathy MD, PhD 03/22/2024 Z13.1 Encounter for sc reening for diabetes mellitus Lab - [facility] 03/22/2024 Z13.6 Encounter for sc reening for cardiovascular disorders Corina Abernathy MD, PhD 03/22/2024 Z13.6 Encounter for sc reening for cardiovascular disorders Lab - [facility] 03/22/2024 E53.8 Deficiency of ot her specified B group vitamins Corina Abernathy MD, PhD 03/22/2024 E53.8 Deficiency of ot her specified B group vitamins Lab - [facility] 03/22/2024 E55.9 Vitamin D deficiency, unspec ified Corina Abernathy MD, PhD 03/22/2024 E55.9 Vitamin D deficiency, unspec ified Lab - [facility] Plan of Treatment Future Appointment(s):* 10/05/2024 8:00 am - Corina Abernathy MD, PhD at [facility] * 09/28/2024 8:00 am - [facility] 03/29/2024 - Corina Abernathy MD, PhD* G47.00 Insomnia, unspecified* Comments:* continue current meds * E78.2 Mixed hyperlipidemia* Comments:* LDL a bit higher but he thinks might be due to increased eggs, he will eat three eggs instead of four * E55.9 Vitamin D deficiency, unspecified* Comments:* levels acceptable. Continue off supplementation. * E80.4 Gilbert's syndrome* Comments:* labs stable * M25.549 Pain in joints of unspecified hand* Comments:* w/u today for elevated uric acid as well as elevated markers of inflammation * All* Follow up:* Restart your Vit b12 Functional Status Description No Information Available Mental Status Description No Information Available Referrals Description No Information Available
[2024-04-12] MEDS ORDERED: ALUMINUM/MAGNESIUM SUSP 30 ML UDC PO PRN (09:41)
[2024-04-12] MEDS ORDERED: METOCLOPRAMIDE HCL INJ 5 MG/ML 2 ML VIAL IV PRN (09:41)
[2024-04-12] MEDS ORDERED: NALOXONE HCL 0.4 MG/1 ML VIAL/CARP IV PRN (09:41)
[2024-04-12] MEDS ORDERED: MAGNESIUM HYDROXIDE SUSP 30 ML UDC PO PRN (09:41)
[2024-04-12] MEDS ORDERED: bisacodyL 10 MG SUPP PR PRN (09:41)
[2024-04-12] MEDS ORDERED: NON-FORMULARY MEDICATION (Turmeric 400 mg Capsule) PO SCH (09:41)
[2024-04-12] MEDS ORDERED: ZOLPIDEM TARTRATE 5 MG TAB PO PRN (09:41)
[2024-04-12] MEDS ORDERED: NON-FORMULARY MEDICATION (Vitamin B12-Folic Acid 1,000-400 mcg Tablet, Sublingual) SL SCH (09:41)
[2024-04-12] MEDS ORDERED: SENNA 8.6 MG TAB PO SCH (09:41)
[2024-04-12] MEDS: HYDROmorphone INJ 0.5 MG/0.5 ML SYR IV PRN (11:01)
[2024-04-12] MEDS: KETOROLAC TROMETHAMINE 15 MG/ML VIAL IV SCH (11:04)
[2024-04-12] MEDS: DOCUSATE SODIUM 100 MG CAP PO SCH (11:06)
[2024-04-12] MEDS: TAMSULOSIN HCL 0.4 MG CAP PO SCH (11:06)
[2024-04-12] MEDS: MULTIVITAMIN TAB PO SCH (11:06)
[2024-04-12] MEDS: traMADol HCL 50 MG TABLET PO PRN (11:32)
[2024-04-12] MEDS: HYDROmorphone INJ 0.5 MG/0.5 ML SYR IV STA (13:06)
--- NOTE | 2024-04-12 13:38 | Anesthesiology Progress Note ---
Date of Service April 12, 2024 Anesthesia Post Procedure Vital Signs Vital Signs: Temp Pulse Pulse Pulse Resp BP Pulse Ox 04/12/24 12:30 75 18 128/68 100 04/12/24 11:29 68 16 127/69 96 04/12/24 10:29 97.5 F L 69 16 128/68 98 04/12/24 10:00 71 18 119/68 98 04/12/24 09:30 97.7 F 79 18 127/64 95 04/12/24 09:20 79 18 122/56 L 95 04/12/24 09:05 80 16 127/59 L 96 04/12/24 08:55 97.5 F L 82 16 129/62 97 04/12/24 08:45 79 20 133/61 100 04/12/24 08:35 84 18 130/51 L 100 04/12/24 08:25 85 12 136/61 99 04/12/24 08:15 97.0 F L 94 H 14 115/50 L 100 04/12/24 05:37 97.9 F 67 18 140/81 95 O2 Del Method O2 Flow Rate 04/12/24 12:30 Room Air 04/12/24 11:29 Room Air 04/12/24 10:29 Room Air 04/12/24 10:00 Room Air 04/12/24 09:30 Room Air 04/12/24 09:20 Room Air 04/12/24 09:05 Room Air 04/12/24 08:55 Room Air 04/12/24 08:45 Oxymask 2 04/12/24 08:35 Oxymask 4 04/12/24 08:25 Oxymask 6 04/12/24 08:15 Oxymask 6 04/12/24 05:37 Room Air Transfer of Care Handoff Completed per policy Notes Mental Status: alert / awake / arousable and participated in evaluation Patient Amnestic to Procedure: Yes Nausea / Vomiting: adequately controlled Pain: adequately controlled Airway Patency, RR, SpO2: stable & adequate BP & HR: stable & adequate Hydration State: stable & adequate Neuraxial Anesthesia: was administered and sensory block is resolving Anesthetic Complications: no major complications apparent and Pt Satisfied with anesthetic care
[2024-04-12] MEDS: TRANEXAMIC ACID / 0.7% NACL 1,000 MG/100 ML BAG IV SCH (15:11)
[2024-04-12] MEDS: ONDANSETRON INJ 2 MG/ML 2 ML VIAL IV PRN (16:14)
[2024-04-12] MEDS: ASCORBIC ACID 500 MG TAB PO SCH (17:47)
[2024-04-12] MEDS: SENNA 8.6 MG TAB PO SCH (20:45)
[2024-04-13 07:25] LABS: Basophils # (auto) 0.02 K/uL (0.00-0.20); Basophils % (auto) 0.3 %; Eosinophils # (auto) 0.13 K/uL (0.00-0.50); Eosinophils % (auto) 2.2 %; Hematocrit (blood only) 35.7 % (42.0-52.0); Hemoglobin 11.9 g/dl (14.0-18.0); Immature Granulocytes # (auto) 0.02 K/uL (0.01-0.20); Immature Granulocytes % (auto) 0.3 %; Lymphocytes # (auto) 0.97 K/uL (1.20-3.40); Lymphocytes % (auto) 16.3 %; Mean Corpuscular Hemoglobin 32.7 pg (25.0-34.0); Mean Corpuscular Hgb Conc 33.3 g/dL (32.0-36.0); Mean Corpuscular Volume 98.1 fL (80.0-100.0); Mean Platelet Volume 9.4 fL (9.4-12.4); Monocytes # (auto) 0.64 K/uL (0.11-0.59); Monocytes % (auto) 10.8 %; Neutrophils # (auto) 4.17 K/uL (1.40-6.50); Neutrophils % (auto) 70.1 %; Platelet Count 168 K/uL (130-400); RDW Standard Deviation 43.6 fL (36.4-46.3); Red Blood Count 3.64 M/uL (4.70-6.10); White Blood Count 5.95 K/ul (4.8-10.8)
[2024-04-13 07:40] LABS: Calcium 8.7 mg/dl (8.6-10.3); Potassium 4.3 mmol/L (3.5-5.1)
[2024-04-13] MEDS: dexAMETHasone 10 MG in SYRINGE 0 ML IV SCH (07:40)
[2024-04-13] MEDS: RIVAROXABAN 10 MG TABLET PO SCH (07:41)
[2024-04-13 08:03] VITALS: BP 123/59; PULSE 80; RESP 16; TEMP 98.4; O2SAT 97
--- NOTE | 2024-04-13 10:50 | Orthopedic Progress Note ---
Date of Service April 13, 2024 Assessment & Plan (1) Status post left hip replacement: Plan: 73-year-old gentleman postop day 1 from left hip replacement doing pretty well. Pains under control. Hips located. He is neurologically intact. Plan: 1. DVT prophylaxis including thigh-high teds, SCDs, and Xarelto for 30 days. 2. PT/OT. Weight-bear as tolerated. Left total hip protocol. 3. Pain control. Doing well with current pain regimen. 4. Disposition plan to discharge to home with some home health if he does okay in therapy today. (2) Status post right hip replacement: Admission and Anticipated Discharge Date Admission Date: April 12, 2024 Subjective 73-year-old gentleman postop day 1 from left hip replacement. He is doing pretty well this morning. Had quite a bit of pain right after a postop but much under better control. Denies any chest pain or shortness of breath. Not feeling dizzy or lightheaded. He has been up and walking with a walker last evening. Physical Exam Respiratory: normal respiratory effort, lungs clear to auscultation Cardiovascular: RRR, no murmur, no edema Gastrointestinal (Abdomen): normal bowel sounds, soft, nontender, no hepatosplenomegaly Results & Data Vital Signs (Past 12 Hours) Vital Signs Temp Pulse Pulse Resp BP Pulse Ox O2 Del Method 04/13/24 08:02 36.9 C 80 16 123/59 L 97 Room Air 04/13/24 03:06 36.5 C 63 18 128/64 95 Room Air 04/12/24 22:58 36.4 C L 73 18 132/72 96 Room Air Laboratory Results Hemoglobin is 11.9. Hematocrit 35.7. Electrolytes are stable.
--- NOTE | 2024-04-15 06:33 | Discharge Summary ---
Date of Service April 15, 2024 Admission HPI (Per Admitting) . The patient is a 73-year-old gentleman now about 2 and half months out from a right hip replacement. His right hip is doing well. He continues to be limited by left hip pain discomfort. He describes groin pain thigh pain. He has not been treated with the medicines in the past which have not helped much. Very happy with the right hip and would like to have his left hip replaced. There is been no change in his medical situation. Admission Exam (Per Admitting) . Physical examination reveals a pleasant middle-age male. Looks to be in good health. Examination of the hips reveal patient walks independently. Examination of the left hip reveals this leg to be just slightly shorter than the right. He is got the stiffness with and pain with any type of hip motion. Internal rotation to neutral at best. No knee effusion. He is neurologically intact. Examination of the right hip reveals well-healed incision. No real less significant swelling. He is got no pain with hip motion. Once again his right hip may be just slightly a little bit longer than the left maybe half a centimeter. Principal Diagnosis Same as "Discharge Diagnosis" noted below under Discharge Instructions. Discharge Data Procedures Performed Operation Date: 04/12/24 07:00 Actual Procedures p Left Total Hip Arthroplasty, Uncemented(Left) - Jan Batista MD Hospital Course (1) Status post left hip replacement: This is a 73 year old patient admitted on 04/12/24 and underwent total hip arthroplasty. He tolerated the procedure well and there were no complications. Transferred to the PACU post op and later to the orthopedic floor for further care. He was given ancef for antibiotic prophylaxis. He was also given SHELBY stockings, SCDs, and xarelto for DVT prophylaxis. Hemoglobin, hematocrit, and vital signs were monitored during his hospital stay and remained stable. Did not require any blood transfusions. There were no complications during his hospital stay. By post op day #1 the patient was tolerating a regular diet, pain was reasonably controlled with oral pain medicine, and he was participating in physical therapy. On post op day #1 the patient was discharged home and set up with home health care. He was given printed discharge instructions including prescriptions for extra strength tylenol, xarelto, tramadol, senokot, flomax, and zofran. Continue hip precautions. Continue physical therapy, weight bearing as tolerated. Continue SHELBY stockings. Follow up approximately 2 weeks post op or sooner if there are problems or concerns. Discharge Plan Discharge Items Patient Disposition: Home - Home Health Services Reason For Visit: POST SURGICAL CARE Discharge Diagnosis: Left Hip Replacement Activity: Per Instructions section Activity Comment: Follow/Obey hip precautions at all times. Weightbearing: Full weightbearing Weightbearing Comment: Weightbear as tolerated obeying hip precautions at all times Non-emergency contact: Surgeon Call non-emergency contact if: you have any medication questions Follow-up/Referrals: Corina Abernathy M.D. [Primary Care Provider] - Diet: Regular Addtl Attending Provider Instructions: ACTIVITY RECOMMENDATIONS: Diet: * You may resume previous diet. Physical Therapy: * Aggressive physical therapy is not usually needed. You will learn to take care of yourself safely and walk. * Follow the "Hip Precautions Instructions." * In some cases, the executive secretary social welfare at the hospital will arrange to have a therapist come to your house for the first couple of weeks to help you learn these skills. * You need to practice on your own or with the help of a family member as needed. * When you learn these skills, most of the therapy can be done on your own. Home Exercise: * You were shown a series of exercises in the hospital. Do these exercises three to four times each day including the exercises you were shown in physical therapy. Walking: * Get up and walk several times each day. For the first four weeks, try not to stand or walk for more than one hour at a time. If you do stand or walk for more than one hour, you will not hurt anything, but your leg will likely swell. * As you feel comfortable, you may change from the walker or crutches to a cane and then to independent walking. MEDICATIONS: New Medicine: * You will likely be taking one or more of these medicines: 1. Tramadol - Take, as directed, when you need it, every six hours to control your pain. 2. Xarelto - Thins your blood to lessen the chance of forming a blood clot. * The most common side effects of pain medicine and iron are nausea and constipation. If nausea or constipation is too much of a problem or if you have any questions about your new medicines or doses, call [facility] at . We will try to help you manage these issues. "VERY IMPORTANT TO READ AND REVIEW" Pain: * The immediate post-operative period after hip replacement surgery is often quite painful. * You are given a prescription for pain medicine. You should take it, as directed, when you need it, especially before physical therapy and before going to bed. Pain that interferes with sleep is very common and can last several months. * You will likely need pain medicine for the first two to four weeks. It will not stop all of the pain. The pain will lessen and as you feel better, you may change to milder pain medicine such as Tylenol. * The most common side effects of pain medicine are nausea and constipation, so don't take more than you need. SPECIAL CARE INSTRUCTIONS: TEDs/Elastic Stockings: * The white elastic stockings help limit swelling and prevent blood clots from forming in your legs. The more you wear them, the more they work. * Wear them for six weeks. Incision Site Care: * Remove dressing postoperative day 2 and then shower. Keep direct shower pressure off the incision site. * After showering, cover ambika with dry gauze and change daily or more frequently if the dressing is getting saturated with drainage. * May completely stop using bandage if wound is dry and no drainage * Ambika are removed between 2 and 3 weeks post-op. If your follow-up appointment is made before 2 weeks, please have your appointment re- scheduled. It is too early to remove the ambika. Prevention of Infection: * Take antibiotics one hour before any dental cleaning, dental work, urological procedure, gastrointestinal procedure or any invasive surgery in order to prevent your new joint from getting infected. * You may get the antibiotics from the doctor performing the procedure or you may call our office at before and we will call in a prescription to the pharmacy of your choice. Things to Watch For: * Drainage from the incision site that occurs more than one week after your surgery. * Severely increased leg pain or swelling. * Increased redness at the incision site. * Fever above 102 degrees Fahrenheit. * Unusual chest pain or shortness of breath. * Unusual pain or burning with urination. Call [facility] at with any of the above problems or if you have any questions about your medicines or recovery. FOLLOW UP VISIT: Make an appointment to see your doctor for approximately two weeks after surgery for a progress check and staple removal by calling the office at . Pending Studies at Discharge: No Stand-Alone Forms: My [facility], Smoking Cessation Medications and DC Order Prescriptions: Continued ondansetron 4 mg tablet,disintegrating 4 mg PO Q8 PRN (Reason: nausea) Qty: 20 1RF Rx Instructions: Take as needed for nausea sennosides [Senokot] 8.6 mg tablet 8.6 mg PO BID 14 Days Qty: 28 0RF Rx Instructions: Take two times a day to prevent/treat constipation tramadol 50 mg tablet 50 - 100 mg PO Q6 PRN (Reason: pain) Qty: 40 0RF Rx Instructions: Take as needed for pain acetaminophen [Tylenol Extra Strength] 500 mg tablet 1,000 mg PO TID 30 Days Qty: 180 0RF Rx Instructions: Take 3 times per day to lessen pain. tamsulosin [Flomax] 0.4 mg capsule 0.4 mg PO DAILY Qty: 7 0RF Rx Instructions: Begin night BEFORE surgery to prevent urinary retention ondansetron 4 mg tablet,disintegrating 4 mg PO Q8 PRN (Reason: nausea) Qty: 20 1RF Rx Instructions: Take as needed for nausea Xarelto 10 mg tablet 10 mg PO DAILY 30 Days Qty: 30 0RF Rx Instructions: Take 1 tablet daily for 30 days to prevent blood clots; will start after surgery zolpidem 5 mg tablet 5 mg PO HS PRN (Reason: Sleep) turmeric 400 mg Capsule 400 mg PO QAM vitamin [id number] 1,000-400 mcg Tablet, Sublingual 1 tab SUBLINGUAL DAILY Discontinued acetaminophen [Tylenol Extra Strength] 500 mg tablet 1,000 mg PO TID PRN (Reason: pain) Rx Instructions: Take 3 times per day to lessen pain. Admission Data Admit Date/Time: 04/12/24 08:18 Attending Provider: Jan Batista Admit Provider: Jan Batista Primary Care Provider: Corina Abernathy Other Providers: [facility],Home [facility] Other Interventions: Discharge Summary Assessment (RN) Last Done: 04/13/24 10:58
== END 2024-04-13 11:52 | disposition home health service (06) ==
LOC: ASU 05:05 → 3E 05:05